=== PATIENT | male | born 1950 | race Caucasian/White ===

== ENCOUNTER 2018-01-12 11:50 | Emergency (ER) | payer MEDICARE, OTHER ==
[~2018-01-12 11:50] MED LIST: ACET-1966 PO; ASPI-757 PO; CIP500 PO; IBUP200C71 PO; KET10 PO; LOR1 PO; LOR5/325 PO; TAMS0.4C76 PO; TRA50 PO
--- NOTE | 2018-01-12 12:04 | ER Report ---
History and Physical Time Seen By MD: 11:57 HPI/ROS CHIEF COMPLAINT: Confusion and amnesia HISTORY OF PRESENT ILLNESS: Patient is a 67-year-old male brought to the emergency department by his for concerns of possible stroke. Patient was at the [facility] with his but working out separately. Apparently someone who knew the patient ran into his and stated that her was not feeling well. She searched the entire [facility] but was unable to find him. She returned home only to find him already at home. Apparently he had run all the way home which is approximately 1-1/[address] [facility]. The patient himself has no recollection of being at the [facility] running home. Her there he is unclear of the events of this morning. He is unable to tell the date or name the president REVIEW OF SYSTEMS: Constitutional: No fever, no chills. Eyes: No discharge. ENT: No sore throat. Cardiovascular: No chest pain, no palpitations. Respiratory: No cough, no shortness of breath. Gastrointestinal: No abdominal pain, no vomiting. Genitourinary: No hematuria. Musculoskeletal: No back pain. Skin: No rashes. Neurological: No headache. Amnesia Psychiatric: Thought process is logical and goal-directed. Patient does not seem to be responding to any internal stimuli. No suicidal or homicidal ideation. Denies alcohol or drug use. Allergies: Coded Allergies: No Known Drug Allergies (Verified , 01/12/18) Home Meds Reported Medications Ibuprofen (IBUPROFEN) 200 Mg Capsule, 2 CAP PO Q6H Y for PAIN/HEADACHE, CAPSULE 05/23/15 Aspirin (ASPIRIN) 325 Mg Tablet, 325 MG PO Q4-6H Y for PAIN/HEADACHE, TAB 05/23/15 Acetaminophen (TYLENOL) 325 Mg Tablet, 325 MG PO Q4H Y for PAIN/HEADACHE 05/23/15 Discontinued Scripts Hydrocodone Bit/Acetaminophen (HYDROCODON-ACETAMINOPHEN 5-325) 1 Each Tablet, 1 EACH PO Q4-6H Y for PAIN, #30 TAB Prov:SINDI MORA MD 09/14/16 Ketorolac Tromethamine (KETOROLAC TROMETHAMINE) 10 Mg Tab, 10 MG PO Q6H, #16 TAB Prov:SINDI MORA MD 09/14/16 Past Medical/Surgical History Past medical history for bilateral hernia with repair in 2015. Bilateral shoulder operations. No prior history of cardiac, pulmonary, liver or kidney disease. No history of diabetes or hypertension, no history of stroke or TIA Hx Smoking: No Smoking Status: Never Smoker Exposure to Second Hand Smoke?: No Hx Alcohol Use: Yes Constitutional Vital Sign - Last 24 Hours 01/12/18 01/12/18 01/12/18 01/12/18 11:50 11:55 12:02 12:05 Temp 98.3 Pulse 76 74 Resp 16 12 B/P (MAP) 176/94 176/94 (121) 163/93 (116) Pulse Ox 93 94 O2 Delivery Room Air 01/12/18 01/12/18 01/12/18 01/12/18 12:10 12:15 12:20 12:25 Pulse 76 75 72 78 Resp 28 19 16 13 Pulse Ox 94 91 93 92 01/12/18 01/12/18 01/12/18 01/12/18 12:30 12:35 12:40 12:45 Pulse 75 79 ??? Resp 19 14 9 B/P (MAP) 146/86 (106) Pulse Ox 94 93 91 01/12/18 01/12/18 01/12/18 01/12/18 12:50 12:55 13:00 13:05 Pulse 69 77 74 75 Resp 25 32 13 14 B/P (MAP) 142/96 (111) Pulse Ox 96 94 95 94 01/12/18 13:10 Pulse 75 Resp 0 Pulse Ox 94 Physical Exam General/Constitutional: Patient is awake, alert, nontoxic and in no acute respiratory distress. Head: Normocephalic and atraumatic. Eyes: Conjunctival clear, Pupils are equal and reactive to light. Extraocular muscles are intact and symmetrical. Sclera are clear and anicteric. Ears:External canals are clear. Tympanic membranes are clear with normal landmarks and light reflex. Nares: No rhinorrhea or bleeding. Turbinates are pink and moist. Oropharyngeal: Mucous membranes are moist. There is no pharyngeal erythema or exudate. There are no palatal petechiae. Uvula is midline and symmetrical. Neck: Supple, no adenopathy. Cardiovascular: Heart is regular rate and rhythm without audible murmurs, rubs or gallops. Pulmonary: Lungs are clear to auscultation bilaterally. There are no wheezes, rales, or rhonchi. Chest rise is symmetrical Abdomen: Soft, nontender, no guarding or peritoneal signs. Extremities: No gross deformities, No peripheral cyanosis. Able to move all 4 extremities. Neuro: Alert and oriented X3, Cranial nerves 2 thru 12 are intact and symmetrical. Patient has normal gait. Patient has amnesia with regard to events that occurred this morning and last evening. Skin: No rashes, skin is warm dry and well perfused. NIH Stroke Scale: 1 Level of consciousness: Alert -0 Answers 1 question correctly-1 Performs both tasks correctly-0 Best Gaze: Normal-0 Visual: No visual loss-0 Facial Palsy: Normal, symmetrical movements-0 Motor Left Arm: No drift for 10 seconds-0 Motor Right Arm: No drift for 10 seconds-0 Motor Left Leg: No drift for 5 seconds-0 Motor Right Leg: No drift for 5 seconds-0 Limb Ataxia: Absent-0 Sensory: Normal, no sensory loss-0 Best Language: Normal, no aphasia-0 Dysarthria: Normal-0 Extinction and Inattention: No abnormality-0 Medical Decision Making Data Points Result Diagram: 01/12/18 1208 01/12/18 1208 Laboratory Hematology Test 01/12/18 12:08 01/12/18 12:49 Red Blood Count 4.60 M/uL (4.00-5.60) Mean Corpuscular Volume 99.8 fL (80.0-96.0) Mean Corpuscular Hemoglobin 34.9 pg (26.0-33.0) Mean Corpuscular Hemoglobin Concent 34.9 g/dL (32.0-36.0) Red Cell Distribution Width 13.7 % (11.5-14.5) Mean Platelet Volume 9.2 fL (7.2-11.1) Neutrophils (%) (Auto) 83.7 % (39.4-72.5) Lymphocytes (%) (Auto) 7.9 % (17.6-49.6) Monocytes (%) (Auto) 7.6 % (4.1-12.4) Eosinophils (%) (Auto) 0.4 % (0.4-6.7) Basophils (%) (Auto) 0.4 % (0.3-1.4) Nucleated RBC Relative Count (auto) 0.0 /100WBC Neutrophils # (Auto) 6.6 K/uL (2.0-7.4) Lymphocytes # (Auto) 0.6 K/uL (1.3-3.6) Monocytes # (Auto) 0.6 K/uL (0.3-1.0) Eosinophils # (Auto) 0.0 K/uL (0.0-0.5) Basophils # (Auto) 0.0 K/uL (0.0-0.1) Nucleated RBC Absolute Count (auto) 0.00 K/uL Peripheral Blood Smear No Y/N Prothrombin Time 13.0 seconds (12.0-14.4) Prothromb Time International Ratio 0.98 Activated Partial Thromboplast Time 27 seconds (23-35) Sodium Level 139 mmol/L (137-145) Potassium Level 3.9 mmol/L (3.5-5.0) Chloride Level 100 mmol/L (98-107) Carbon Dioxide Level 22 mmol/L (22-30) Blood Urea Nitrogen 11 mg/dl (9-21) Creatinine 0.90 mg/dl (0.66-1.25) Glomerular Filtration Rate Calc > 60.0 Random Glucose 96 mg/dl (75-110) Calcium Level 10.0 mg/dl (8.4-10.2) Total Bilirubin 1.0 mg/dl (0.2-1.3) Aspartate Amino Transf (AST/SGOT) 25 U/L (0-35) Alanine Aminotransferase (ALT/SGPT) 28 U/L (0-56) Alkaline Phosphatase 64 U/L (0-126) Troponin I < 0.012 ng/ml Total Protein 7.7 gm/dl (6.3-8.2) Albumin 4.6 g/dl (3.5-5.0) Urine Color Straw Urine Clarity Clear Urine pH 7.0 pH (4.8-9.5) Urine Specific [place] 1.002 Urine Protein Negative mg/dL (NEGATIVE) Urine Glucose (UA) Negative mg/dL (NEGATIVE) Urine Ketones Trace mg/dL (NEGATIVE) Urine Blood Negative (NEGATIVE) Urine Nitrite Negative (NEGATIVE) Urine Bilirubin Negative (NEGATIVE) Urine Urobilinogen Negative mg/dL (0.2-1.9) Urine Leukocyte Esterase Negative (NEGATIVE) Urine RBC None /HPF (0-2/HPF) Urine WBC <1 /HPF (0-5/HPF) Urine Squamous Epithelial Cells None /LPF (</=FEW) Urine Bacteria Negative /HPF (NONE-FEW) Urine Mucus None /HPF (NONE-FEW) Chemistry Test 01/12/18 12:08 01/12/18 12:49 White Blood Count 7.9 k/uL (4.5-11.0) Red Blood Count 4.60 M/uL (4.00-5.60) Hemoglobin 16.0 g/dL (14.0-18.0) Hematocrit 46.0 % (42.0-52.0) Mean Corpuscular Volume 99.8 fL (80.0-96.0) Mean Corpuscular Hemoglobin 34.9 pg (26.0-33.0) Mean Corpuscular Hemoglobin Concent 34.9 g/dL (32.0-36.0) Red Cell Distribution Width 13.7 % (11.5-14.5) Platelet Count 125 K/uL (150-450) Mean Platelet Volume 9.2 fL (7.2-11.1) Neutrophils (%) (Auto) 83.7 % (39.4-72.5) Lymphocytes (%) (Auto) 7.9 % (17.6-49.6) Monocytes (%) (Auto) 7.6 % (4.1-12.4) Eosinophils (%) (Auto) 0.4 % (0.4-6.7) Basophils (%) (Auto) 0.4 % (0.3-1.4) Nucleated RBC Relative Count (auto) 0.0 /100WBC Neutrophils # (Auto) 6.6 K/uL (2.0-7.4) Lymphocytes # (Auto) 0.6 K/uL (1.3-3.6) Monocytes # (Auto) 0.6 K/uL (0.3-1.0) Eosinophils # (Auto) 0.0 K/uL (0.0-0.5) Basophils # (Auto) 0.0 K/uL (0.0-0.1) Nucleated RBC Absolute Count (auto) 0.00 K/uL Peripheral Blood Smear No Y/N Prothrombin Time 13.0 seconds (12.0-14.4) Prothromb Time International Ratio 0.98 Activated Partial Thromboplast Time 27 seconds (23-35) Glomerular Filtration Rate Calc > 60.0 Calcium Level 10.0 mg/dl (8.4-10.2) Total Bilirubin 1.0 mg/dl (0.2-1.3) Aspartate Amino Transf (AST/SGOT) 25 U/L (0-35) Alanine Aminotransferase (ALT/SGPT) 28 U/L (0-56) Alkaline Phosphatase 64 U/L (0-126) Troponin I < 0.012 ng/ml Total Protein 7.7 gm/dl (6.3-8.2) Albumin 4.6 g/dl (3.5-5.0) Urine Color Straw Urine Clarity Clear Urine pH 7.0 pH (4.8-9.5) Urine Specific [place] 1.002 Urine Protein Negative mg/dL (NEGATIVE) Urine Glucose (UA) Negative mg/dL (NEGATIVE) Urine Ketones Trace mg/dL (NEGATIVE) Urine Blood Negative (NEGATIVE) Urine Nitrite Negative (NEGATIVE) Urine Bilirubin Negative (NEGATIVE) Urine Urobilinogen Negative mg/dL (0.2-1.9) Urine Leukocyte Esterase Negative (NEGATIVE) Urine RBC None /HPF (0-2/HPF) Urine WBC <1 /HPF (0-5/HPF) Urine Squamous Epithelial Cells None /LPF (</=FEW) Urine Bacteria Negative /HPF (NONE-FEW) Urine Mucus None /HPF (NONE-FEW) Coagulation Test 01/12/18 12:08 Prothrombin Time 13.0 seconds Prothromb Time International Ratio 0.98 Activated Partial Thromboplast Time 27 seconds Urinalysis Test 01/12/18 12:49 Urine Color Straw Urine Clarity Clear Urine pH 7.0 pH (4.8-9.5) Urine Specific [place] 1.002 Urine Protein Negative mg/dL (NEGATIVE) Urine Glucose (UA) Negative mg/dL (NEGATIVE) Urine Ketones Trace mg/dL (NEGATIVE) Urine Blood Negative (NEGATIVE) Urine Nitrite Negative (NEGATIVE) Urine Bilirubin Negative (NEGATIVE) Urine Urobilinogen Negative mg/dL (0.2-1.9) Urine Leukocyte Esterase Negative (NEGATIVE) Urine RBC None /HPF (0-2/HPF) Urine WBC <1 /HPF (0-5/HPF) Urine Squamous Epithelial Cells None /LPF (</=FEW) Urine Bacteria Negative /HPF (NONE-FEW) Urine Mucus None /HPF (NONE-FEW) EKG/Imaging EKG Interpretation EKG shows normal sinus rhythm with 70 bpm with incomplete right bundle-branch block. Monitor Interpretation: Normal Sinus Rhythm Imaging [place] [facility] [place] NAME: Landon Larson : 1950 MR: [id number] V: [id number] EXAM DATE: ORDERING PHYSICIAN: AMY MA TECHNOLOGIST: Location: [facility] [place] Patient: Landon Larson : 1950 Visit/Account:[id number] Date of Sevice: 01/12/2018 EXAMINATION: Head CT without intravenous contrast History: Neurological symptoms. TECHNIQUE: Contiguous axial images were obtained from the skull base to the vertex without intravenous contrast. One of the following dose optimization techniques was utilized in the performance of this exam: Automated exposure control; adjustment of the mA and/or kV according to the patient's size; or use of an iterative reconstruction technique. Specific details can be referenced in the facility's radiology CT exam operational policy. COMPARISON STUDIES: none FINDINGS: Visualized mastoid air cells / paranasal sinuses: negative Calvarium and scalp: negative White matter: negative Dural venous sinuses / arterial structures: negative Ventricles / sulci / fissures: negative Masses / hemorrhage / midline shift: negative Extra-axial spaces: negative IMPRESSION: Normal head CT. No evidence of a mass, acute ischemia or hemorrhage. Report Dictated By: Jeremy Fernandez MD at 01/12/2018 12:10 PM Report E-Signed By: Jeremy Fernandez MD at 01/12/2018 12:15 PM WSN:[id number] [place] [facility] [place] NAME: Landon Larson : 1950 MR: [id number] V: [id number] EXAM DATE: ORDERING PHYSICIAN: AMY MA TECHNOLOGIST: Location: [facility] [place] Patient: Landon Larson : 1950 Visit/Account:[id number] Date of Sevice: 01/12/2018 Examination: CHEST SINGLE AP Comparison: None. History: Stroke. Findings: Cardiac and hilar contour size is within normal limits. No consolidation, nodule, or peribronchial inflammation. No pneumothorax, edema, or effusion. Osseous structures are intact. IMPRESSION: No evidence of acute cardiopulmonary disease. Report Dictated By: Rito Samuels MD at 01/12/2018 12:41 PM Report E-Signed By: Rito Samuels MD at 01/12/2018 12:42 PM WSN:[id number] ED Course/Re-evaluation Clinical Indication for ER IV: IV Access ED Course 01/12/2018 12:46:25 pm Patient with amnesia. No obvious signs of stroke. NIH stroke scale is 1. which was given for confusion as to the date. Patient has no focal weakness or sensory deficit no aphasia or dysarthria. Muscle strength is symmetrical. CT scan is unremarkable. Blood work is unremarkable. I am calling neurology at [facility] to discuss what would be the next most appropriate test for imaging of the brain. 01/12/2018 1:13:[address] Lazo from neurology at [facility], history physical exam pertinent lab data and CT scan of the head were reviewed. Patient was essentially global amnesia with unknown etiology. Dr. Lazo recommends that the patient be transferred to [facility] for further evaluation and testing to include MRI of the brain, EEG. He requests that we call the hospitalist Dr. Diaz to discuss for possible admission. 01/12/2018 1:25:26 pm spoke with the on-call hospitalist Dr. Diaz, history physical exam emergency department course all pertinent lab data and imaging studies were reviewed. Patient has been accepted for transfer at this time. The patient will be coming by private auto and will report to the admissions department at [facility] for direct admission Decision to Disposition Date: Jan 12, 2018 Decision to Disposition Time: 13:27 Depart Departure Latest Vital Signs Vital Signs Date Time Temp Pulse Resp B/P (MAP) Pulse Ox O2 Delivery O2 Flow Rate FiO2 01/12/18 13:10 75 0 94 01/12/18 13:00 142/96 (111) 01/12/18 11:50 98.3 Room Air Impression: Primary Impression: Amnesia (retrograde) Condition: Condition Unchanged Disposition: XFER TO ACUTE CARE [facility] (To admissions at [facility] under Dr Diaz) Referrals: ANA FERRARA MD (PCP) Additional Instructions: Go to [facility] by private auto. Please remember to bring all of your paperwork from [facility] which will include your emergency department visit, EKG and transfer paperwork and report to the admissions part of the hospital for direct admission to AMY Barraza MD Jan 12, 2018 12:04
--- NOTE | 2018-01-12 12:18 | RADIOLOGY IMAGING REPORT ---
FACILITY: [facility] PATIENT NAME: Landon Larson : 1950 MR: [id number] V: [id number] EXAM DATE: ORDERING PHYSICIAN: AMY MA TECHNOLOGIST: Location: [facility] Patient: Landon Larson : 1950 Visit/Account:[id number] Date of Sevice: 01/12/2018 EXAMINATION: Head CT without intravenous contrast History: Neurological symptoms. TECHNIQUE: Contiguous axial images were obtained from the skull base to the vertex without intraven ous contrast. One of the following dose optimization techniques was utilized in the performance of th is exam: Automated exposure control; adjustment of the mA and/or kV according to the patient's size; or use of an iterative reconstruction technique. Specific details can be referenced in the facility 's radiology CT exam operational policy. COMPARISON STUDIES: none FINDINGS: Visualized mastoid air cells / paranasal sinuses: negative Calvarium and scalp: negative White matter: negative Dural venous sinuses / arterial structures: negative Ventricles / sulci / fissures: negative Masses / hemorrhage / midline shift: negative Extra-axial spaces: negative IMPRESSION: Normal head CT. No evidence of a mass, acute ischemia or hemorrhage. Report Dictated By: Jeremy Fernandez MD at 01/12/2018 12:10 PM Report E-Signed By: Jeremy Fernandez MD at 01/12/2018 12:15 PM WSN:[id number]
[2018-01-12 12:21] LABS: PLATELET COUNT, AUTOMATED 125 K/uL (150-450)
[2018-01-12 12:33] LABS: INR 0.98
--- NOTE | 2018-01-12 12:46 | RADIOLOGY IMAGING REPORT ---
FACILITY: [facility] [place] PATIENT NAME: Landon Larson : 1950 MR: [id number] V: [id number] EXAM DATE: ORDERING PHYSICIAN: AMY MA TECHNOLOGIST: [place] [facility] [place] Landon L[place] : 1950 Visit/Account:[id number] Date of Sevice: 01/12/2018 Examination: CHEST SINGLE AP Comparison: None. History: Stroke. Findings: Cardiac and hilar contour size is within normal limits. No consolidation, nodule, or peribr onchial inflammation. No pneumothorax, edema, or effusion. Osseous structures are intact. IMPRESSION: No evidence of acute cardiopulmonary disease. Report Dictated By: Rito Samuels MD at 01/12/2018 12:41 PM Report E-Signed By: Rito Samuels MD at 01/12/2018 12:42 PM WSN:[id number]
--- NOTE | 2018-01-12 13:01 | EKG ---
[place] [facility] [place] NAME: HARSHAL ALFONSO : [id number] MR: [id number] V: [id number] EXAM DATE: ORDERING PHYSICIAN: AMY MA TECHNOLOGIST: NAVYA Test Reason : ALTERED LOC Blood Pressure : / mmHG Vent. Rate : 070 BPM Atrial Rate : 070 BPM P-R Int : 172 ms QRS Dur : 112 ms QT Int : 420 ms P-R-T Axes : 033 -19 008 degrees QTc Int : 453 ms Normal sinus rhythm Incomplete right bundle branch block Borderline ECG When compared with ECG of 14-SEP-2016 10:14, QT has lengthened Confirmed by ISMAEL PACHECO ([id number]) on 01/12/2018 2:34:01 PM Referred By: FRANCESCA Confirmed By:ISMAEL PACHECO
[2018-01-12 13:38] VITALS: BP 159/94
== END 2018-01-12 13:50 | disposition short-term general hospital (02) ==
LOC: ER 11:53
DX: R41.2 Retrograde amnesia (principal); Z79.82 Long term (current) use of aspirin; R41.82 Altered mental status, unspecified
CPT/HCPCS: 36416; 70450; 71045; 81001; 82040; 82247; 82310; 82374; 82435; 82565; 82947; 82948; 84075; 84132; 84155; 84295; 84450; 84460; 84484; 84520; 85025; 85610; 85730; 93005; 99284